=== PATIENT | female | born 1970 | race Two or more races ===

== ENCOUNTER 2020-08-25 17:53 | Emergency (ER) | payer OTHER ==
[~2020-08-25] VITALS: Ht 162.6 cm; Wt 79.4 kg
[2020-08-25] MEDS ORDERED: TYLENOR (18:52)
[2020-08-25] MEDS ORDERED: INMODIUN (18:54)
[2020-08-25] MEDS ORDERED: CARAFATE1 GM PO (20:49)
[2020-08-25] MEDS ORDERED: PEPCID AC20 MG PO (20:49)
== END 2020-08-25 21:03 | disposition home or self-care (01) ==
LOC: ER 17:53
DX: K29.70 Gastritis, unspecified, without bleeding (principal); Z03.818 Encounter for observation for suspected exposure to other biological agents ruled out

== ENCOUNTER 2021-01-10 07:45 | Emergency (ER) | payer OTHER ==
[~2021-01-10] VITALS: Ht 162.6 cm; Wt 70.8 kg
[~2021-01-10 07:45] MED LIST: CARAFATE1 GM PO; INMODIUN; PEPCID AC20 MG PO; TYLENOR
[2021-01-10] MEDS ORDERED: DICLOFENAC POTA50 MG PO (09:46)
== END 2021-01-10 09:58 | disposition home or self-care (01) ==
LOC: ER 07:45
DX: M79.642 Pain in left hand (principal); G56.02 Carpal tunnel syndrome, left upper limb

== ENCOUNTER 2024-01-16 10:08 | Emergency (ER) | payer OTHER ==
[~2024-01-16] VITALS: Ht 162.6 cm; Wt 77.1 kg
[~2024-01-16 10:08] MED LIST changes: +DICLOFENAC POTA50 MG PO
[2024-01-16] MEDS ORDERED: DEXAMETHASONE SODIUM PHOSPHATE 4 MG/ML VIAL IM STA (10:52)
[2024-01-16] MEDS ORDERED: KETOROLAC TROMETHAMINE 30 MG VIAL IM ONE (11:00)
== END 2024-01-16 15:28 | disposition home or self-care (01) ==
LOC: ER
DX: S50.11XA Contusion of right forearm, initial encounter (principal); W18.39XA Other fall on same level, initial encounter; Y93.89 Activity, other specified; Y92.89 Other specified places as the place of occurrence of the external cause

== ENCOUNTER 2025-03-31 06:32 | Emergency (ER) | payer OTHER ==
[~2025-03-31] VITALS: Ht 165.1 cm; Wt 77.1 kg
[2025-03-31] MEDS ORDERED: KETOROLAC TROMETHAMINE 60 MG VIAL IM STA (08:45)
[2025-03-31] MEDS ORDERED: KETOROLAC TROMETHAMINE 60 MG VIAL IM ONE (08:46)
[2025-03-31 09:27] LABS: BASO % 0.5 % (0.1-1.2); EOS # 0.07 (0.04-0.54); EOS % 0.8 % (0.7-7.0); HEMATOCRIT 40.5 % (34.1-44.9); HEMOGLOBIN 13.1 g/dL (11.2-15.7); LYMPH # 2.02 (1.18-3.74); LYMPH % 22.8 % (19.3-53.1); MEAN CORPUSCULAR HEMOGLOBIN 28.9 pg (25.6-32.2); MONO # 0.52 (0.24-0.82); MONO % 5.9 % (4.7-12.5); NEUT # 6.19 (1.56-6.13); NEUT % 69.8 % (34.0-71.1); PLATELET COUNT 249 K/uL (163-369); RED BLOOD COUNT 4.53 M/uL (3.93-5.22); RED CELL DISTRIBUTION WIDTH 13.2 % (11.6-14.4)
[2025-03-31 09:41] LABS: COVID-19 AG NEGATIVE (NEGATIVE); INFLUENZA A AG NEGATIVE (NEGATIVE); INFLUENZA B AG NEGATIVE (NEGATIVE)
== END 2025-03-31 10:16 | disposition home or self-care (01) ==
LOC: ER 06:39
PROVIDERS: General Practice
DX: B34.9 Viral infection, unspecified (principal); R51.9 Headache, unspecified; Z20.822 Contact with and (suspected) exposure to COVID-19